=== PATIENT | male | born 1945 | race Caucasian/White ===

== ENCOUNTER 2017-07-05 13:53 | Inpatient (IN) | payer MEDICARE, BC ==
[2017-07-05 14:38] LABS: ADD MAN DIFF? NO
[2017-07-05 14:45] LABS: BASO # 0.1 x10^3/uL (0.0-0.2); BASO % 1 % (0-3); EOS # 0.1 x10^3/uL (0.0-0.7); EOS % 2 % (0-3); HEMATOCRIT 47.9 % (39.0-53.0); HEMOGLOBIN 16.1 g/dL (13.0-17.5); LYMPH # 2.4 x10^3/uL (1.0-4.8); LYMPH % 37 % (24-48); MEAN CORPUSCULAR HEMOGLOBIN 29 pg (25-35); MEAN CORPUSCULAR HGB CONC 34 g/dL (31-37); MEAN CORPUSCULAR VOLUME 86 fL (79-100); MONO # 0.5 x10^3/uL (0.0-1.1); MONO % 7 % (0-9); NEUT # 3.3 x10^3uL (1.8-7.7); NEUT % 52 % (31-73); PLATELET COUNT 173 x10^3/uL (140-400); RED BLOOD COUNT 5.58 x10^6/uL (4.30-5.70); RED CELL DISTRIBUTION WIDTH 12.6 % (11.5-14.5); WHITE BLOOD COUNT 6.3 x10^3/uL (4.0-11.0)
[2017-07-05 15:10] LABS: TROPONINI < 0.017 ng/mL (0.000-0.055)
[2017-07-05] MEDS: ASPIRIN CHEWABLE 81 MG TABLET. PO (15:11)
[2017-07-05] MEDS: NITROGLYCERIN SUBLINGUAL 0.4 MG BOTTLE OF 25. SL (15:13)
[2017-07-05 15:24] LABS: ANION GAP 13 (6-14); BLOOD UREA NITROGEN 15 mg/dL (8-26); BUN/CREATININE RATIO 12 (6-20); CALCIUM 9.3 mg/dL (8.5-10.1); CARBON DIOXIDE 27 mmol/L (21-32); CHLORIDE 98 mmol/L (98-107); CREATININE 1.3 mg/dL (0.7-1.3); GFR 54.1; GLUCOSE 287 mg/dL (70-99); SODIUM 138 mmol/L (136-145)
[2017-07-05 15:31] LABS: ALBUMIN 3.7 g/dL (3.4-5.0); ALK PHOS 55 U/L (46-116); ALT (SGPT) 68 U/L (16-63); AST (SGOT) 54 U/L (15-37); LIPASE 147 U/L (73-393); TOTAL BILIRUBIN 0.7 mg/dL (0.2-1.0); TOTAL PROTEIN 7.3 g/dL (6.4-8.2)
[2017-07-05 15:36] LABS: NT-PRO BNP 69 pg/mL (0-124)
[2017-07-05 15:36] LABS: CKMB INDEX 1.8 % (0-4); CREATINE KINASE 112 U/L (39-308)
[2017-07-05] MEDS ORDERED: ONDANSETRON PF 4 MG/2 ML VIAL. IV (16:45)
[2017-07-05] MEDS ORDERED: fentaNYL PF VIAL 100 MCG/2 ML VIAL IV (16:45)
[2017-07-05] MEDS: IV NORMAL SALINE 1000ML BAG 1,000 ML IV ×2 (17:15→18:31)
[2017-07-05] MEDS: ENOXAPARIN 40 MG/0.4 ML SYRINGE. SQ (21:25)
[2017-07-05] MEDS: CARVEDILOL 3.125 MG TABLET. PO (21:25)
[2017-07-05 23:27] LABS: TROPONINI < 0.017 ng/mL (0.000-0.055)
[2017-07-06] MEDS: IV NORMAL SALINE 1000ML BAG 1,000 ML IV (02:01)
[2017-07-06] MEDS: ACETAMINOPHEN 325 MG TABLET. PO (02:45)
[2017-07-06 05:47] LABS: ADD MAN DIFF? NO
[2017-07-06 06:01] LABS: BASO # 0.1 x10^3/uL (0.0-0.2); BASO % 1 % (0-3); EOS # 0.1 x10^3/uL (0.0-0.7); EOS % 2 % (0-3); HEMATOCRIT 44.8 % (39.0-53.0); HEMOGLOBIN 14.8 g/dL (13.0-17.5); LYMPH # 2.7 x10^3/uL (1.0-4.8); LYMPH % 41 % (24-48); MEAN CORPUSCULAR HEMOGLOBIN 29 pg (25-35); MEAN CORPUSCULAR HGB CONC 33 g/dL (31-37); MEAN CORPUSCULAR VOLUME 86 fL (79-100); MONO # 0.5 x10^3/uL (0.0-1.1); MONO % 7 % (0-9); NEUT # 3.2 x10^3uL (1.8-7.7); NEUT % 49 % (31-73); PLATELET COUNT 162 x10^3/uL (140-400); RED BLOOD COUNT 5.19 x10^6/uL (4.30-5.70); RED CELL DISTRIBUTION WIDTH 12.9 % (11.5-14.5); WHITE BLOOD COUNT 6.5 x10^3/uL (4.0-11.0)
[2017-07-06 06:38] LABS: ANION GAP 16 (6-14); BLOOD UREA NITROGEN 16 mg/dL (8-26); CALCIUM 8.4 mg/dL (8.5-10.1); CARBON DIOXIDE 25 mmol/L (21-32); CHLORIDE 98 mmol/L (98-107); CREATININE 1.4 mg/dL (0.7-1.3); GFR 49.7; GLUCOSE 276 mg/dL (70-99); POTASSIUM 3.5 mmol/L (3.5-5.1); SODIUM 139 mmol/L (136-145)
[2017-07-06 06:55] LABS: TROPONINI < 0.017 ng/mL (0.000-0.055)
[2017-07-06 07:23] LABS: CHOLESTEROL 199 mg/dL (0-200); HDLC 21 mg/dL (40-60); NON-HDL CHOLESTEROL 178 mg/dL (0-129); TRIGLYCERIDES 548 mg/dL (0-150); VLDLC 110 mg/dL (0-40)
[2017-07-06 07:27] LABS: CHOLESTEROL/HDL RATIO 9.5
[2017-07-06] MEDS: CARVEDILOL 3.125 MG TABLET. PO (07:52)
== END 2017-07-06 09:00 | disposition left against medical advice (07) | DRG 303 ==
LOC: ER 13:53 → 5 NORTH 15:21
DX: I25.119 Atherosclerotic heart disease of native coronary artery with unspecified angina pectoris (principal); E11.9 Type 2 diabetes mellitus without complications; Z53.21 Procedure and treatment not carried out due to patient leaving prior to being seen by health care provider; I25.2 Old myocardial infarction; Z91.041 Radiographic dye allergy status; Z82.49 Family history of ischemic heart disease and other diseases of the circulatory system
CPT/HCPCS: 36415; 71045; 80048; 80053; 80061; 82553; 83690; 83735; 83880; 84484; 85025; 93005; J1650; J7030